=== PATIENT | male | born 1990 | race African-American/Black ===

== ENCOUNTER 2018-03-04 15:15 | Emergency (ER) | payer MEDICAID ==
[~2018-03-04] VITALS: Ht 172.7 cm; Wt 54.4 kg
[2018-03-04] MEDS ORDERED: NKM (15:18)
--- NOTE | 2018-03-04 15:21 | Emergency Room Report ---
History of Present Illness General Chief Complaint: Back Pain-No Injury Source: Patient Present Illness HPI Patient presents after a stressful event at home. He started feeling some sharp left-sided chest and back pain. He has a history of a tension pneumothorax and paramedics were called. He is transported here. He feels overwhelmed with distress at home but not suicidal or homicidal. Been doing some MDMA at a green party last night but doesn't feel it in of system right now. Denies any medical problems. He also does THC. Allergies: Coded Allergies: No Known Allergies (Unverified , 03/04/18) Patient History Past Medical History: see triage record, other - h/o pneumothorax Pertinent Family History: other - mom with alcoholism Social History: Reports: drug use Reviewed Nursing Documentation: PMH: Agreed; PSxH: Agreed Nursing Documentation-PMH Past Medical History: No History, Except For Physical Exam Vital Signs Date Time Temp Pulse Resp B/P (MAP) Pulse Ox O2 Delivery O2 Flow Rate FiO2 03/04/18 15:15 97.1 97 14 124/91 98 Room Air 97.2 Medical Decision Making Diagnostic Impression: Primary Impression: Back pain Additional Impression: Stress ER Course Patient presents with back pain post stressful event. Differential includes muscle strain, back strain, thorax recurrence amongst others. She'll be evaluated with a chest x-ray. Also Motrin given. Patient denies suicidal or homicidal ideation at this time. Chest x-ray shows post procedural changes to right apex without pneumothorax. The patient is somewhat improved with Motrin. Discussed treatment plan with patient and referral to the her. The patient is stable for outpatient observation and treatment. Chest X-Ray Diagnostic Results Chest X-Ray Diagnostic Results : Chest X-Ray Ordered: Yes # of Views/Limited/Complete: 1 View Indication: Other EP Interpretation: Yes Interpretation: no consolidation, no effusion, other - post pleurodesis changes Status: improved Disposition: HOME, SELF-CARE Condition: Improved Scripts Ibuprofen* (MOTRIN*) 600 Mg Tablet 600 MG ORAL Q6H PRN for For Pain, #20 TAB Prov: Emiliano Tadeo M.D. 03/04/18 Emiliano Tadeo M.D. Mar 04, 2018 15:21
[2018-03-04 16:12] VITALS: BP 111/72
[2018-03-04] MEDS ORDERED: IBUPROFEN600 MG ORAL (16:14)
[2018-03-04 16:39] VITALS: BP 124/91
--- NOTE | 2018-03-05 12:57 | Diagnostic Imaging Report ---
Indication: Chest pain Technique: XRAY Chest 1v Comparison: None Findings: Right size and mediastinal contours are within normal limits. There is mild hyperinflation. There is evidence of prior surgery with a surgical suture line in the left apex. There is mild biapical scarring. There is some suggestion of some small blebs in the left apex. There is no focal airspace consolidation. Costophrenic sulci are sharp. No evidence of pneumothorax. No acute osseous abnormality. IMPRESSION: No focal airspace consolidation, pleural effusion or pneumothorax. Evidence of prior right lung surgery. Hyperinflation suggesting possible reactive or small airway disease. Correlate clinically. Small blebs in the left apex.
== END 2018-03-04 16:33 | disposition home or self-care (01) ==
LOC: EDBD 15:15 → EMR 15:25
DX: M54.9 Dorsalgia, unspecified (principal); R07.9 Chest pain, unspecified; F43.9 Reaction to severe stress, unspecified
CPT/HCPCS: 71045; 99283